=== PATIENT | male | born 1950 | race Caucasian/White ===

== ENCOUNTER 2019-08-10 02:04 | Inpatient (IN) | payer OTHER, MEDICARE ==
[2019-08-10] VITALS (22 sets, daily range): BP systolic 94–139
[~2019-08-10] VITALS: Ht 172.7 cm; Wt 58.1 kg
--- NOTE | 2019-08-10 02:04 | NUR ---
Placed in room 1. Placed on cardiac catheterization technologist, blood pressure machine and pulse oximeter. To gown for exam. Side rails up. Report given to Rashawn MORRELL
--- NOTE | 2019-08-10 02:05 | NUR ---
ER at bedside examining patient.
--- NOTE | 2019-08-10 02:06 | NUR ---
Pt is a 69 year old male from home BIB ACLS for respiratory distress. Pt has hx of pulmonary HTN, pulmonary fibrosis and cardiac hx. Pt reports sudden onset of shortness of breath at approxiomately 0030 this morning. Pt increased normal home O2 therapy to 5 lpm via nasal cannula with no relief. EMS arrived O2 sat is 79%, observed tripoding and using accessory muscle use. Pt was placed on high flow O2 via NRB mask and O2 sat increased to 93%. Denies chest pain, N/V or any other symptoms at this time. Will continue to monitor.
--- NOTE | 2019-08-10 02:08 | NUR ---
Malia gaxiola in ED - 08/10/19 at 0227 by [email or web address] VIVIEN Vanegas at bedside examining patient.
[2019-08-10] MEDS ORDERED: ACETAMINOPHEN 325 MG TABLET PO ONE (02:15)
[2019-08-10] MEDS ORDERED: NACL 0.9% 1,000 ML IV ONE (02:15)
[2019-08-10] MEDS ORDERED: IPRATROPIUM/ALBUTEROL SULFATE 3 ML AMPUL.NEB (DUONEB) INH ONE (02:15)
[2019-08-10] MEDS ORDERED: PIPERACILLIN/TAZO 3.375 GM in NS 50 ML IV ONE (02:15)
[2019-08-10] MEDS ORDERED: VANCOMYCIN HCL 1,000 MG in NS 250 ML IV ONE (02:15)
[2019-08-10] MEDS ORDERED: methylPREDNISolone SOD SUCC/PF 62.5 MG/ML VIAL IVP ONE (02:30)
[2019-08-10 02:31] LABS: BASOPHILS % (AUTO) 0.7 % (0.0-2.0); EOSINOPHILS # (AUTO) 0.3 K/uL (0.0-0.4); EOSINOPHILS % (AUTO) 3.8 % (0.0-4.0); HEMATOCRIT 44.5 % (36-54); HEMOGLOBIN 15.6 g/dL (14.0-18.0); LYMPHOCYTES # (AUTO) 0.6 K/uL (1.0-5.5); MEAN CORPUSCULAR HEMOGLOBIN 31 pg (27-31); MEAN CORPUSCULAR HGB CONC 35 % (32-36); MEAN CORPUSCULAR VOLUME 90 fL (79.0-98.0); MONOCYTES # (AUTO) 0.7 K/uL (0.0-1.0); MONOCYTES % (AUTO) 10.6 % (1.7-9.3); NEUTROPHILS # (AUTO) 5.4 K/uL (1.8-7.7); NEUTROPHILS % (AUTO) 75.9 % (40.0-70.0); PLATELET COUNT (AUTO) 314 K/uL (130-430); RED BLOOD CELL COUNT(AUTO) 4.95 MIL/uL (4.2-6.2); RED CELL DISTRIBUTION WIDTH 14.3 % (9.0-15.0); WHITE BLOOD COUNT (AUTO) 7.1 K/uL (4.8-10.8)
--- NOTE | 2019-08-10 02:36 | NUR ---
chest xray performed at the bedside,pt tolerated well.
[2019-08-10] MEDS ORDERED: PIPERACILLIN/TAZOBACTAM 3.375 GM/VIAL (ZOSYN) IV ONE (02:38)
[2019-08-10 02:49] LABS: PROTHROMBIN TIME 10.4 SECS (9.5-12.5)
[2019-08-10 02:50] LABS: CALCIUM 8.2 mg/dL (8.4-11.0); CREATININE 0.66 mg/dL (0.55-1.30); POTASSIUM 3.8 mmol/L (3.5-5.1)
[2019-08-10 02:55] LABS: ALBUMIN 2.6 g/dL (3.4-4.8)
[2019-08-10] MEDS ORDERED: ALBU2.5V7 INH (03:00)
[2019-08-10] MEDS ORDERED: OMEG100T PO (03:00)
[2019-08-10] MEDS ORDERED: SILD20TA PO (03:00)
[2019-08-10] MEDS ORDERED: ATRMDI INH (03:00)
[2019-08-10] MEDS ORDERED: BUDE6HFA INH (03:00)
[2019-08-10] MEDS ORDERED: VITAMIN D PO (03:00)
[2019-08-10] MEDS ORDERED: LIP40 PO (03:00)
[2019-08-10] MEDS ORDERED: INDO-12 PO (03:00)
[2019-08-10] MEDS ORDERED: AMLO2.5T2 PO (03:00)
[2019-08-10] MEDS ORDERED: ASA81 PO (03:00)
--- NOTE | 2019-08-10 03:02 | NUR ---
Medication reconciliation completed with information provided by the pt at the bedside. Any prior medication reconciliation on file was reviewed and corrected.
--- NOTE | 2019-08-10 03:10 | NUR ---
Bi-pap machine keep on alarming due to facial air ,RT suggested to change to high flow and ok for Dr Vanegas.
--- NOTE | 2019-08-10 03:14 | NUR ---
Bi-pap change to high flow .pt tolerated well.
--- NOTE | 2019-08-10 03:16 | NUR ---
PTs left her number [phone]
--- NOTE | 2019-08-10 03:31 | NUR ---
Pt signed CT with contrast form and placed in chart.
[2019-08-10] MEDS ORDERED: VANCOMYCIN HCL 1000 MG/VIAL IV ONE ×2 (03:40→03:41)
--- NOTE | 2019-08-10 03:42 | NUR ---
Pt to CT accompanied by RT. VSS, NAD.
[2019-08-10] MEDS ORDERED: IOHEXOL 350 mgI/mL, 150 ML INFUS..BTL IV ONE (03:45)
--- NOTE | 2019-08-10 03:50 | NUR ---
Pt returns from CT. No needs verbalized, VSS. SPO2 96% with O2 at 15 LPM/Oximizer. Respirations even and non-labored.
[2019-08-10 04:43] LABS: BILIRUBIN,URINE NEGATIVE (NEGATIVE); BLOOD, URINE NEGATIVE (NEGATIVE); CLARITY/URINE CLEAR (CLEAR); COLOR,URINE YELLOW (YELLOW); GLUCOSE,URINE NEGATIVE (NEGATIVE); KETONES,URINE NEGATIVE (NEGATIVE); LEUKOCYTE ESTERASE ,URINE TRACE (NEGATIVE); NITRITE, URINE NEGATIVE (NEGATIVE); PH,URINE 5.5 (5.0-8.0); PROTEIN URINE NEGATIVE (NEGATIVE)
--- NOTE | 2019-08-10 04:56 | NUR ---
Patient will be admitted to care of Dr. Galan. Admitted to ICU unit. Will go to room 4. Belongings list completed. Summary report printed. Report will be given at bedside.
[2019-08-10 04:59] LABS: BACTERIA,URINE FEW /HPF (None Seen); RBC,URINE 0-3 /HPF (0-3)
--- NOTE | 2019-08-10 05:07 | NUR ---
ADMISSION ASSESSMENT Pt admitted from ER and placed in ICU 4. Report given at bedside using SBAR format. Pt able to ambulate from ER gurney to ICU bed. Pt placed on in room monitor. VSS with SR seen on the monitor. Pt on high flow mask 50%, tolerating well with O2 sats @ 97% and even and unlabored breathing. Pt has L FA 20g SL and R FH 18 g SL. Admission assessment and data completed. Pt doesn't verbalize any needs at this time. Bed is locked and in lowest position, call light within reach, will cont to monitor.
--- NOTE | 2019-08-10 07:08 | NUR ---
Exchange called for consult to Dr Alvarado. Valorie notified.
[2019-08-10] MEDS: IPRATROPIUM/ALBUTEROL SULFATE 3 ML AMPUL.NEB (DUONEB) INH SCH ×3 (07:12→19:36)
--- NOTE | 2019-08-10 07:20 | NUR ---
ENDORSEMENT Report given to oncoming nurse using SBAR format and pt care was endorsed. No signs of acute distress or discomfort noted.
--- NOTE | 2019-08-10 07:40 | NUR ---
AM Assessment PT received from night RN using SBAR. Pt connected to continuous monitor. Pt awake, no complaints of distress or signs of injury. Bed in lowest position. Pt oriented to call light. Will continue to monitor.
[2019-08-10] MEDS ORDERED: ACETAMINOPHEN 325 MG TABLET PO PRN (08:00)
--- NOTE | 2019-08-10 08:30 | NUR ---
Spouse Pt came to visit Pt during breakfast.
--- NOTE | 2019-08-10 09:35 | NUR ---
Dr Belkis Galan assessed Pt @ 8921. Placed orders for new medications.
[2019-08-10] MEDS: methylPREDNISolone SOD SUCC/PF 62.5 MG/ML VIAL IVP SCH ×2 (09:46→20:14)
[2019-08-10] MEDS: FAMOTIDINE 20 MG TABLET PO SCH (09:46)
[2019-08-10] MEDS: PIPERACILLIN/TAZO 3.375/DEX-IS 50 ML IV SCH ×3 (11:51→23:30)
--- NOTE | 2019-08-10 12:30 | NUR ---
Quique Srivastava arrived @ 7914 for Pt nutrition consult.
--- NOTE | 2019-08-10 13:30 | NUR ---
Dr Belkis Alvarado assessed Pt @ 0919
--- NOTE | 2019-08-10 13:48 | NUR ---
Respiratory Dr Alvarado ordered FiO2 from 50% to 40%.
--- NOTE | 2019-08-10 13:48 | NUR ---
RT Note: 1348 titrated hi-flow nasal cannula to 40% FiO2 and flow of 40 lpm. SpO2 is between 92-95%, RR 22, and HR 95. Will continue to monitor and titrate oxygen per Dr's order. Addendum: 08/10/19 at 1420 by Inez Pendleton RT Amended: Links added.
[2019-08-10] MEDS ORDERED: ENOXAPARIN SODIUM 40 MG/0.4 ML SYRINGE SUBCUT ONE (14:00)
--- NOTE | 2019-08-10 14:16 | NUR ---
Dietitian Recommendations * Recommend continuing 2 gm Na diet * Recommend snacks BID in-between meals * Pt declined Ensure Enlive ONS and nutrition education LP, RD Please refer to Nutrition Assessment for details. Addendum: 08/10/19 at [address] Amended: Links added.
--- NOTE | 2019-08-10 19:10 | NUR ---
Closing Notes Pt endorsed to night RN using SBAR. Vital signs stable. Addendum: 08/10/19 at 2341 by Talya Booth RN WRONG NOTE
--- NOTE | 2019-08-10 19:10 | NUR ---
Closing Notes Pt endorsed to night RN using SBAR. Vital signs stable.
--- NOTE | 2019-08-10 20:00 | NUR ---
AT 1915 P.M, RECEIVED NURSING REPORT FROM DAY SHIFT ROC Gillespie, PATIENT IS ALERT, ORIENTED X4, VERBAL RESPONSE, ABLE TO MAKE NEEDS KNOWN, H.R 87-100 /MIN IS SINUS RHYTHM, HIGH FLOW NASAL CANNULA FIO2 40%, KEEP O2 SAT.> 90%, VERBALIZED NO FEEL ANYTHING DISCOMFORT, RAILS UP X2, CALL LIGHT IN REACH, ON FALL PRECAUTION, KEEP CLEAN, COMFORTABLE SUPPORT ALL TIMES
[2019-08-10] MEDS: SILDENAFIL CITRATE 20 MG TABLET PO SCH (20:14)
[2019-08-11] VITALS (18 sets, daily range): BP systolic 92–159
[2019-08-11] MEDS: IPRATROPIUM/ALBUTEROL SULFATE 3 ML AMPUL.NEB (DUONEB) INH SCH ×4 (01:52→19:55)
[2019-08-11] MEDS: PIPERACILLIN/TAZO 3.375/DEX-IS 50 ML IV SCH ×4 (05:07→23:51)
[2019-08-11 05:42] LABS: BASOPHILS % (AUTO) 0.1 % (0.0-2.0); HEMATOCRIT 40.9 % (36-54); HEMOGLOBIN 14.2 g/dL (14.0-18.0); LYMPHOCYTES # (AUTO) 0.3 K/uL (1.0-5.5); LYMPHOCYTES % (AUTO) 4.5 % (20.5-51.5); MEAN CORPUSCULAR HEMOGLOBIN 31 pg (27-31); MEAN CORPUSCULAR HGB CONC 35 % (32-36); MEAN CORPUSCULAR VOLUME 90 fL (79.0-98.0); MONOCYTES # (AUTO) 0.4 K/uL (0.0-1.0); MONOCYTES % (AUTO) 4.8 % (1.7-9.3); NEUTROPHILS % (AUTO) 90.6 % (40.0-70.0); PLATELET COUNT (AUTO) 334 K/uL (130-430); RED BLOOD CELL COUNT(AUTO) 4.54 MIL/uL (4.2-6.2); RED CELL DISTRIBUTION WIDTH 14.5 % (9.0-15.0); WHITE BLOOD COUNT (AUTO) 7.7 K/uL (4.8-10.8)
--- NOTE | 2019-08-11 05:54 | NUR ---
PATIENT IS ALERT, ORIENTED X4, NIGHT TIME SLEEPING WELL, WEAR HIGH FLOW NASAL CANNULA FIO2 40% CONTINUOS ,O2 SAT. 92-94%, RAILS UP, CALL LIGHT IN REACH, KEEP CLOSE MONITOR
[2019-08-11 06:03] LABS: ALBUMIN 2.5 g/dL (3.4-4.8); CREATININE 0.62 mg/dL (0.55-1.30); POTASSIUM 3.8 mmol/L (3.5-5.1); TOTAL BILIRUBIN 0.6 mg/dL (0.0-1.0)
--- NOTE | 2019-08-11 07:20 | NUR ---
Received report and patient from NOC shift. In no acute distress.
--- NOTE | 2019-08-11 07:21 | NUR ---
GIVE COMPLETE NURSING REPORT TO DAY SHIFT LUCERO Gillespie AND KIM Gillespie
[2019-08-11] MEDS: SILDENAFIL CITRATE 20 MG TABLET PO SCH ×2 (08:38→20:48)
[2019-08-11] MEDS: methylPREDNISolone SOD SUCC/PF 62.5 MG/ML VIAL IVP SCH ×2 (08:38→20:48)
[2019-08-11] MEDS: ASPIRIN 81 MG TAB.CHEW PO SCH (08:38)
[2019-08-11] MEDS: FAMOTIDINE 20 MG TABLET PO SCH (08:38)
[2019-08-11] MEDS: ENOXAPARIN SODIUM 40 MG/0.4 ML SYRINGE SUBCUT SCH (08:39)
[2019-08-11] MEDS: INSULIN LISPRO SLIDING SCALE 100 UNITS/ML VIAL (humaLOG) SUBCUT PRN ×3 (12:32→20:55)
--- NOTE | 2019-08-11 15:35 | NUR ---
RECEIVED PATIENT TRANSFERRED FROM ICU AND RESUME CARE Received report from PETROS Mays from ICU at bedside. Patient was transported with portable heart monitor with RN and RT. Patient resting in the bed. No acute distress. On high flow NC with FIO2=40% at 40L. AAO x 4. Denied of pain. Skin warm and dry to touch. IV intact to LFA, no redness, no swelling, patent. Discussed the safety issue, use call light when needs help, and plan of care, verbally understanding. Safety measure maintained. Call light within reached. Bed locked in low position, side rails up, bed alarm on. at bedside. Will continue to monitor.
--- NOTE | 2019-08-11 15:36 | NUR ---
Patient transferred and endorsed report to nurse Franci. Transferred with bed and assistance of respiratory therapy. Portable 02 with portable tele monitor utilized. Patient stated thank you for taking care of me. In on acute distress. No c/o pain. Breathing even and unlabored. Tolerated transfer well.
--- NOTE | 2019-08-11 17:36 | NUR ---
ZL=881 Humalog insulin 4 units given for AE=195. Safety measure maintained. Call light within reached. Bed locked in low position, side rails up, bed alarm on. Continue to monitor.
--- NOTE | 2019-08-11 18:31 | NUR ---
CLOSING NOTE Patient resting in the bed. No acute distress. Continue on O2 FIO2=40%, O2=40L via high flow NC. Skin warm and dry to touch. Dinner tolerated well. IV intact, no redness, no swelling, patent. All needs met. Safety measure maintained. Call light within reached. Bed locked in low position, side rails up, bed alarm on. Will endorse to night nurse.
--- NOTE | 2019-08-11 19:30 | NUR ---
INITIAL NOTES HANDOFF REPORT RECEIVED FROM OFFGOING NURSE AT THE BEDSIDE. PATIENT IS AAOX4, RESTING COMFORTABLY IN BED. NO SOB, NO ACUTE DISTRESS, NO COMPLAINTS OF PAIN. CURRENTLY ON HIGH FLOW NC AND TOLERATING WELL. BED IS LOCKED, IN THE LOWEST POSITION, 2X SIDE RAILS UP. PATIENT REFUSES BED ALARM AT THIS TIME, STATES HE IS ABLE TO AMBULATE INDEPENDENTLY WITHOUT ASSISTANCE TO THE RESTROOM AND BACK TO BED WITH STEADY GAIT. CALL LIGHT IS WITHIN REACH. ENCOURAGED PATIENT TO CALL FOR ASSISTANCE. WILL CONTINUE WITH PLAN OF CARE.
--- NOTE | 2019-08-11 20:30 | NUR ---
ASSISTED PATIENT TO DISCONNECT FROM IV TUBING SO THAT HE CAN AMBULATE TO THE RESTROOM. PATIENT AMBULATED TO THE RESTROOM INDEPENDENTLY WITHOUT ASSISTANCE, STEADY GAIT. NOW RESTING COMFORTABLY IN BED. NO SOB, NO ACUTE DISTRESS, NO COMPLAINTS OF PAIN AT THIS TIME. ENCOURAGED PATIENT TO CALL FOR ASSISTANCE.
--- NOTE | 2019-08-11 22:00 | NUR ---
PATIENT CURRENTLY RESTING COMFORTABLY IN BED, AAOX4. NO SOB, NO ACUTE DISTRESS, NO COMPLAINTS OF PAIN OR DISCOMFORT AT THIS TIME. IV SITE INTACT, DRESSING CLEAN AND DRY, SALINE LOCKED. CALL LIGHT WITHIN REACH. ENCOURAGED PATIENT TO CALL FOR ASSISTANCE.
--- NOTE | 2019-08-11 23:44 | NUR ---
PATIENT RESTING COMFORTABLY IN BED, EYES CLOSED. BREATHING EVEN AND UNLABORED WITH VISIBLE CHEST RISE AND FALL NOTED. NO SOB, NO ACUTE DISTRESS, NO SIGNS OF PAIN OR FACIAL GRIMACING NOTED. CURRENTLY ON HIGH FLOW NASAL CANNULA AND TOLERATING WELL.
--- NOTE | 2019-08-12 01:50 | NUR ---
PATIENT RESTING COMFORTABLY IN BED, EYES CLOSED. BREATHING EVEN AND UNLABORED WITH VISIBLE CHEST RISE AND FALL NOTED. NO SOB, NO ACUTE DISTRESS, NO SIGNS OF PAIN OR FACIAL GRIMACING NOTED. BED IS LOCKED, LOWEST POSITION, 2X SIDE RAILS UP, BED ALARM IS ON. CALL LIGHT WITHIN REACH.
[2019-08-12 01:56] VITALS: BP_SYST 128
--- NOTE | 2019-08-12 04:00 | NUR ---
PATIENT RESTING COMFORTABLY IN BED, EYES CLOSED. BREATHING EVEN AND UNLABORED WITH VISIBLE CHEST RISE AND FALL NOTED. NO SIGNS OF DISTRESS OR PAIN AT THIS TIME. STABLE. WILL CONTINUE TO MONITOR.
[2019-08-12] MEDS: PIPERACILLIN/TAZO 3.375/DEX-IS 50 ML IV SCH ×3 (05:31→17:42)
[2019-08-12] MEDS: INSULIN LISPRO SLIDING SCALE 100 UNITS/ML VIAL (humaLOG) SUBCUT PRN ×3 (06:07→17:44)
--- NOTE | 2019-08-12 06:10 | NUR ---
PATIENT AMBULATED TO THE RESTROOM AND BACK TO BED INDEPENDENTLY WITH STEADY GAIT. PATIENT WENT WITHOUT OXYGEN. ASSISTED PATIENT TO PLACE HIGH FLOW O2 BACK ON. PATIENT NOW VERBALIZES RELIEF FROM SOB. CALL LIGHT WITHIN REACH. ENCOURAGED PATIENT TO CALL FOR ASSISTANCE.
--- NOTE | 2019-08-12 06:29 | NUR ---
CLOSING NOTES AAOX4, RESTING COMFORTABLY IN BED. NO SOB, NO ACUTE DISTRESS, NO COMPLAINTS OF PAIN. IV SITE INTACT, DRESSING CLEAN AND DRY, SALINE LOCKED. BED IS LOCKED, IN THE LOWEST POSITION, 2X SIDE RAILS UP. CALL LIGHT IS WITHIN REACH. ENCOURAGED PATIENT TO CALL FOR ASSISTANCE. FALL AND SAFETY PRECAUTIONS MAINTAINED. ALL NEEDS HAVE BEEN MET DURING THIS SHIFT. WILL ENDORSE CARE TO ONCOMING DAYSHIFT NURSE.
[2019-08-12] MEDS: IPRATROPIUM/ALBUTEROL SULFATE 3 ML AMPUL.NEB (DUONEB) INH SCH ×3 (07:07→19:44)
--- NOTE | 2019-08-12 07:38 | NUR ---
OPENING NOTE Patient resting in the bed. No acute distress. Continue on O2 FIO2=40%, O2=40L via high flow NC. AAO x 4. Denied of pain. Skin warm and dry to touch. SL intact to LFA, no redness, no swelling, patent. Discussed the safety issue, use call light when needs help, and plan of care, verbally understanding. Safety measure maintained. Call light within reached. Bed locked in low position, side rails up. Refused bed alarm, risk and benefit explained, verbally understanding. Will continue to monitor.
[2019-08-12 07:40] VITALS: BP_SYST 124
[2019-08-12] MEDS: SILDENAFIL CITRATE 20 MG TABLET PO SCH ×2 (08:44→21:10)
[2019-08-12] MEDS: methylPREDNISolone SOD SUCC/PF 62.5 MG/ML VIAL IVP SCH ×2 (08:44→21:10)
[2019-08-12] MEDS: FAMOTIDINE 20 MG TABLET PO SCH (08:44)
[2019-08-12] MEDS: ASPIRIN 81 MG TAB.CHEW PO SCH (08:44)
[2019-08-12] MEDS: ENOXAPARIN SODIUM 40 MG/0.4 ML SYRINGE SUBCUT SCH (08:45)
--- NOTE | 2019-08-12 09:25 | NUR ---
PATIENT WENT TO BATHROOM WITH DESATURATION Noted patient O2 desaturated=88% in the monitor. Checked patient no SOB, breath even and unlabored. Patient ambulated to bathroom. No acute distress. Assisted back to bed. Safety measure maintained. Call light within reached. Continue to monitor.
--- NOTE | 2019-08-12 10:20 | NUR ---
VISITED AND STAYED WITH PATIENT, SITING IN A CHAIR AT BEDSIDE.
--- NOTE | 2019-08-12 11:56 | NUR ---
ZOSYN IVPB HANG AT THIS TIME Patient resting in the bed. No acute distress. Continue on high flow O2, FIO2=40%. IV intact, patent, Zosyn IVPB hang. at bedside. Safety measure maintained. Call light within reached. Call light within reached. Bed locked in low position, side rails up. Continue to monitor.
[2019-08-12 12:39] VITALS: BP_SYST 123
--- NOTE | 2019-08-12 13:30 | NUR ---
ROUND Patient resting in the bed. No acute distress. Continue on O2 via high flow NC. at bedside. Safety measure maintained. Bed locked in low position, side rails up. Call light within reached. Continue to monitor.
--- NOTE | 2019-08-12 15:30 | NUR ---
SEEN AND EXAMINED BY GUILLERMINA STORM.
[2019-08-12 16:29] VITALS: BP_SYST 134
--- NOTE | 2019-08-12 17:44 | NUR ---
AU=415 Humalog insulin 4 units given for ES=452. Safety measure maintained. Call light within reached. Bed locked in low position, side rails up, bed alarm on. Continue to monitor.
--- NOTE | 2019-08-12 18:59 | NUR ---
CLOSING NOTE Patient resting in the bed. No acute distress. Continue on O2 FIO2=40% via high flow NC. Skin warm and dry to touch. IV intact, no redness, no swelling, patent. All needs met. Safety measure maintained. Call light within reached. Bed locked in low position, side rails up, bed alarm on. Will endorse to night nurse.
--- NOTE | 2019-08-12 19:35 | NUR ---
ROUNDS PATIENT RESTING COMFORTABLY IN BED, AWAKE, ALERT, ORIENTED X4, VITALS STABLE. DENIES ANY PAIN AND DISCOMFORT AT THIS TIME. ASSESSMENT DONE AND DOCUMENTED. SEE FLOWSHEET. NEEDS ATTENDED TO. SAFETY AND FALL PRECAUTION MEASURES IN PLACED. BED IN LOW AND LOCKED POSITION. CALL LIGHT PLACED WITHIN REACH.
--- NOTE | 2019-08-12 21:03 | NUR ---
ACCU CHECK ACCU CHECK DONE, BLOOD SUGAR 123, NO INSULIN COVERAGE PER SLIDING SCALE. WILL CONTINUE TO MONITOR.
--- NOTE | 2019-08-13 00:21 | NUR ---
PATIENT RESTING: Patient resting quietly. No acute distress noted. Vital signs within normal range.
[2019-08-13 00:46] VITALS: BP_SYST 144
[2019-08-13] MEDS: PIPERACILLIN/TAZO 3.375/DEX-IS 50 ML IV SCH ×4 (00:50→17:32)
--- NOTE | 2019-08-13 02:14 | NUR ---
ROUNDS PATIENT ASLEEP, RESPIRATIONS EVEN AND UNLABORED, WILL CONTINUE TO MONITOR.
[2019-08-13] MEDS: INSULIN LISPRO SLIDING SCALE 100 UNITS/ML VIAL (humaLOG) SUBCUT PRN ×3 (06:26→17:41)
--- NOTE | 2019-08-13 06:37 | NUR ---
CLOSING NOTES PATIENT AWAKE, NO COMPLAINTS AT THIS TIME, ALL NEEDS ATTENDED TO. ACCU CHECK DONE, BLOOD SUGAR 220 WITH 4 UNITS HUMALOG GIVEN PER SLIDING SCALE. SAFETY MEASURES MAINTAINED. CALL LIGHT PLACED WITHIN REACH.
[2019-08-13] MEDS: IPRATROPIUM/ALBUTEROL SULFATE 3 ML AMPUL.NEB (DUONEB) INH SCH ×3 (07:07→13:34)
--- NOTE | 2019-08-13 07:55 | NUR ---
OPENING NOTE RECEIVED PATIENT AWAKE IN BED. A/OX4. NO C/O PAIN. CONT ON HIGH FLOW O2; ROHAN WELL. NO ACUTE DISTRESS. NO SOB. RESPIRATION EVEN AND UNLABORED. SKIN WARM AND DRY TO TOUCH. IV INTACT AND PATENT. BED IN LOW AND LOCKED POSITION. SIDERAIL UPX3. BED ALARM ON. DISCUSSED PLAN OF CARE; PT VERBALIZED UNDERSTANDING. ALL NEEDS MET. CALL LIGHT IN REACH. CONT TO MONITOR
[2019-08-13 08:00] VITALS: BP_SYST 129
[2019-08-13] MEDS: FAMOTIDINE 20 MG TABLET PO SCH (08:30)
[2019-08-13] MEDS: SILDENAFIL CITRATE 20 MG TABLET PO SCH (08:30)
[2019-08-13] MEDS: ASPIRIN 81 MG TAB.CHEW PO SCH (08:30)
[2019-08-13] MEDS: methylPREDNISolone SOD SUCC/PF 62.5 MG/ML VIAL IVP SCH (08:30)
[2019-08-13] MEDS: ENOXAPARIN SODIUM 40 MG/0.4 ML SYRINGE SUBCUT SCH (08:31)
--- NOTE | 2019-08-13 08:38 | NUR ---
meds ALL DUE MEDS ADMINISTERED ORDERED, ROHAN WELL. TEACHING DONE ON MEDICATION AND ASE. CONT TO MONITOR
--- NOTE | 2019-08-13 10:45 | NUR ---
O2 PATIENT PLACED ON OXYMIZER@ 5L/M BY RT AND ROHAN WELL. SpO2@94%. NO ACUTE DISTRESS. NO SOB. RESPIRATION EVEN AND UNLABORED. SKIN WARM AND DRY. ALL NEEDS MET. CONT TO MONITOR
[2019-08-13 12:00] VITALS: BP_SYST 133
--- NOTE | 2019-08-13 12:05 | NUR ---
BS PATIENTS BLOOD GLUCOSE IS 198 mg/dL WITH INSULIN COVERAGE ORDERED, ROHAN WELL. ALL NEEDS MET. CONT TO MONITOR
--- NOTE | 2019-08-13 13:00 | NUR ---
O2 PATIENT ON O2@4L/M VIA NASAL CANULA AND ROHAN WELL WITH SpO2@93%. STABLE. NO ACUTE DISTRESS. NO SOB. RESPIRATION EVEN AND UNLABORED. ALL NEEDS MET. CONT TO MONITOR. CALL LIGHT IN REACH.
--- NOTE | 2019-08-13 15:00 | NUR ---
NOTE PATIENT RETURNING FROM BATHROOM. STABLE. NO ACUTE DISTRESS. NO SOB. RESPIRATION EVEN AND UNLABORED. ALL NEEDS MET. CONT TO MONITOR
[2019-08-13 15:02] VITALS: BP_SYST 129
--- NOTE | 2019-08-13 16:28 | NUR ---
NOTE AT BEDSIDE. PROVIDED PATIENT WITH ICE WATER. ALL NEEDS MET. CALL LIGHT IN REACH. CONT TO MONITOR
[2019-08-13 17:59] VITALS: BP_SYST 149
--- NOTE | 2019-08-13 18:36 | NUR ---
CLOSING NOTE PATIENT STABLE. DISCHARGE HOME WITH RX. AWAITING FOR TO BURGLAR ALARM INSPECTOR FOR DISCHARGE.
--- NOTE | 2019-08-13 18:50 | NUR ---
D/C Patient Patient given medication reconciliation form and D/C instructions. Exit Care provided. Patient verbalized understanding. MD discussed with patient the results and treatment provided. Ambulatory with steady gait for discharge to home. Patient in stable condition, ID band removed. IV catheter removed, intact and dressing applied, no active bleeding. Rx of PREDNISONE AND KEFLEX given. Patient educated on pain management. All belongings sent with patient.
[2019-08-13] MEDS ORDERED: PREDNISONE 20 MG TABLET PO SCH (21:00)
== END 2019-08-13 18:50 | disposition home or self-care (01) | DRG 871 ==
LOC: SED 02:04 → SIC 04:45 → STU 08-11 15:30
PROVIDERS: ADMIT Internal Medicine; ATTEND Internal Medicine
DX: A41.9 Sepsis, unspecified organism (principal); J18.9 Pneumonia, unspecified organism; J96.21 Acute and chronic respiratory failure with hypoxia; E44.0 Moderate protein-calorie malnutrition; Z68.1 Body mass index [BMI] 19.9 or less, adult; I10 Essential (primary) hypertension; I27.29 Other secondary pulmonary hypertension; I25.10 Atherosclerotic heart disease of native coronary artery without angina pectoris; J84.10 Pulmonary fibrosis, unspecified; E78.5 Hyperlipidemia, unspecified; Z88.8 Allergy status to other drugs, medicaments and biological substances; Z79.899 Other long term (current) drug therapy; Z83.3 Family history of diabetes mellitus; Z95.5 Presence of coronary angioplasty implant and graft; Z99.81 Dependence on supplemental oxygen; Z87.891 Personal history of nicotine dependence; Z79.82 Long term (current) use of aspirin
CPT/HCPCS: 36415; 36600; 71045; 71275; 80053; 81000-TC; 82803-TC; 82962; 83605; 83880; 84484; 85025; 85379; 85610-TC; 85730-TC; 87040-TC; 87081; 87086; 94640; 94760; 96365; 96366; 96367; 96375; 99285; G0378; J1650; J2543; J2930; J3370; J7050; J7620; Q9967

== ENCOUNTER 2020-08-04 12:37 | Emergency (ER) | payer OTHER, MEDICARE ==
[~2020-08-04] VITALS: Ht 172.7 cm; Wt 44.0 kg
[~2020-08-04 12:37] MED LIST: ALBU2.5V7 INH; AMLO2.5T2 PO; ASA81 PO; ATRMDI INH; BUDE6HFA INH; INDO-12 PO; LIP40 PO; OMEG100T PO; SILD20TA PO; VITAMIN D PO
[2020-08-04 12:43] VITALS: BP_SYST 124
--- NOTE | 2020-08-04 12:43 | NUR ---
Placed in room 03 . Placed on monitor and storage bin tender, blood pressure machine and pulse oximeter. To gown for exam. Side rails up. Report given to PETROS GALLEGOS.
--- NOTE | 2020-08-04 12:45 | NUR ---
biomedical engineering technologist at bedside collecting blood specimen as ordered by Dr. Bella. Patient tolerated the procedure well.
--- NOTE | 2020-08-04 12:47 | NUR ---
Patient presented to ER C/O abnormal labs. Patient BIB via wheel chair to ER, afebrile, skin pink & warm, denies pain, denies N/V/D. Patient states he was notified by PMD of abnormal labs and referred to closest ER. Pt he has recent hx of lung transplant.
[2020-08-04 13:01] LABS: BASOPHILS % (AUTO) 0.4 % (0.0-2.0); EOSINOPHILS % (AUTO) 0.1 % (0.0-4.0); HEMOGLOBIN 13.1 g/dL (14.0-18.0); LYMPHOCYTES # (AUTO) 0.4 K/uL (1.0-5.5); LYMPHOCYTES % (AUTO) 3.8 % (20.5-51.5); MEAN CORPUSCULAR HEMOGLOBIN 31 pg (27-31); MEAN CORPUSCULAR HGB CONC 33 % (32-36); MEAN CORPUSCULAR VOLUME 94 fL (79.0-98.0); MONOCYTES # (AUTO) 0.7 K/uL (0.0-1.0); MONOCYTES % (AUTO) 7.2 % (1.7-9.3); NEUTROPHILS # (AUTO) 9.3 K/uL (1.8-7.7); NEUTROPHILS % (AUTO) 88.5 % (40.0-70.0); PLATELET COUNT (AUTO) 442 K/uL (130-430); RED BLOOD CELL COUNT(AUTO) 4.27 MIL/uL (4.2-6.2); RED CELL DISTRIBUTION WIDTH 20.1 % (9.0-15.0); WHITE BLOOD COUNT (AUTO) 10.4 K/uL (4.8-10.8)
[2020-08-04 13:15] LABS: CALCIUM 9.1 mg/dL (8.4-11.0); CREATININE 1.03 mg/dL (0.55-1.30)
[2020-08-04] MEDS ORDERED: NACL 0.9% 1,000 ML IV ONE (13:15)
[2020-08-04 13:18] LABS: ALBUMIN 3.5 g/dL (3.4-4.8)
[2020-08-04 13:33] LABS: TOTAL BILIRUBIN 0.4 mg/dL (0.0-1.0)
[2020-08-04 13:41] LABS: POTASSIUM 6.5 mmol/L (3.5-5.1)
[2020-08-04] MEDS ORDERED: SODIUM BICARBONATE 8.4% JECT 50 MEQ in D5W 1,000 ML IV SCH (13:45)
[2020-08-04] MEDS ORDERED: SODIUM ZIRCONIUM CYCLOSILICATE 10 GM POWD.PACK PO ONE (13:45)
[2020-08-04] MEDS ORDERED: SODIUM BICARBONATE 8.4% JECT 50 MEQ/50 ML SYRINGE ONE (14:10)
[2020-08-04] MEDS ORDERED: INSULIN REGULAR, HUMAN 10 UNITS/0.1 ML INJ IVP ONE (14:15)
[2020-08-04] MEDS ORDERED: DEXTROSE 50% JECT 50 ML DISP.SYRIN IVP ONE (14:15)
--- NOTE | 2020-08-04 15:05 | NUR ---
Malia gaxiola in [facility] - 08/04/20 at 1622 by SDEDTD NURSE REPORT TO DEMARIO MORRELL
[2020-08-04 16:25] VITALS: BP_SYST 118
--- NOTE | 2020-08-04 16:25 | NUR ---
Patient given written and verbal discharge instructions and verbalizes understanding. ER MD discussed with patient the results and treatment provided. Patient in stable condition. ID arm band removed. IV catheter removed intact and dressing applied, no active bleeding. No Rx given. Patient educated on pain management and to follow up with PMD. Pain Scale 0/10 . Opportunity for questions provided and answered. Medication side effect fact sheet provided.
== END 2020-08-04 16:25 | disposition home or self-care (01) ==
LOC: SED 12:37
DX: E87.5 Hyperkalemia (principal); Z79.899 Other long term (current) drug therapy; Z79.82 Long term (current) use of aspirin
CPT/HCPCS: 36415; 80053; 85025; 93005; 96361; 96365; 96375; 99284; J7030; J7060; J1815

== ENCOUNTER 2020-08-06 18:10 | Emergency (ER) | payer OTHER, MEDICARE, SELFPAY ==
[~2020-08-06] VITALS: Ht 157.5 cm; Wt 44.0 kg
[2020-08-06 18:28] VITALS: BP_SYST 136
[2020-08-06] MEDS ORDERED: NS 250 ML IV ONE (18:45)
[2020-08-06 18:47] LABS: BASOPHILS % (AUTO) 0.7 % (0.0-2.0); EOSINOPHILS % (AUTO) 0.1 % (0.0-4.0); HEMATOCRIT 36.1 % (36-54); LYMPHOCYTES # (AUTO) 0.3 K/uL (1.0-5.5); MEAN CORPUSCULAR HEMOGLOBIN 31 pg (27-31); MEAN CORPUSCULAR HGB CONC 33 % (32-36); MEAN CORPUSCULAR VOLUME 93 fL (79.0-98.0); MONOCYTES # (AUTO) 0.2 K/uL (0.0-1.0); MONOCYTES % (AUTO) 4.5 % (1.7-9.3); NEUTROPHILS % (AUTO) 89.7 % (40.0-70.0); PLATELET COUNT (AUTO) 386 K/uL (130-430); RED BLOOD CELL COUNT(AUTO) 3.86 MIL/uL (4.2-6.2); WHITE BLOOD COUNT (AUTO) 5.6 K/uL (4.8-10.8)
[2020-08-06 18:59] LABS: CALCIUM 8.9 mg/dL (8.4-11.0); CREATININE 0.73 mg/dL (0.55-1.30)
[2020-08-06 19:06] LABS: ALBUMIN 3.2 g/dL (3.4-4.8); PROTHROMBIN TIME 9.9 SECS (9.5-12.5); TOTAL BILIRUBIN 0.4 mg/dL (0.0-1.0)
[2020-08-06 19:09] LABS: POTASSIUM 5.9 mmol/L (3.5-5.1)
[2020-08-06] MEDS ORDERED: SODIUM BICARBONATE 8.4% JECT 50 MEQ/50 ML SYRINGE IVP ONE (19:30)
[2020-08-06] MEDS ORDERED: CALCIUM GLUCONATE 1 GM in NS 100 ML IV ONE (19:30)
[2020-08-06] MEDS ORDERED: CALCIUM GLUCONATE 1 GM/10 ML VIAL ONE (21:15)
[2020-08-06 23:13] LABS: CALCIUM 8.3 mg/dL (8.4-11.0); CREATININE 0.64 mg/dL (0.55-1.30)
[2020-08-07] VITALS: BP_SYST 136
== END 2020-08-07 | disposition home or self-care (01) ==
LOC: SED 18:10
DX: E87.5 Hyperkalemia (principal); Z79.899 Other long term (current) drug therapy; Z79.82 Long term (current) use of aspirin; Z20.828 Contact with and (suspected) exposure to other viral communicable diseases
CPT/HCPCS: 36415; 80048; 80053; 85025; 85610; 85730; 87426; 93005; 96361; 96365; 96375; 99284; J0610; J7030